=== PATIENT | female | born 1990 ===

== ENCOUNTER 2016-06-14 15:26 | Emergency (ER) | payer MEDICAID ==
[2016-06-14 15:26] VITALS: BMI 32.2
[2016-06-14 15:45] VITALS: BP 123/64; PULSE 95; RESP 16; TEMP 97.7; O2SAT 100
--- NOTE | 2016-06-14 16:10 | ED PDOC ---
HPI: Back Time Seen by Provider: 06/14/16 15:53 Chief Complaint (Nursing): Female Genitourinary Chief Complaint (Provider): Flank Pain History Per: Patient History/Exam Limitations: no limitations Onset/Duration Of Symptoms: Days (intermittently since January 2016), Worse Since (today) Current Symptoms Are (Timing): Still Present Quality Of Discomfort: Aching (constant), Other (discomfort) Severity: Moderate Associated Symptoms: Other (nausea, vomiting, feelings of generalized weakness; no fever or diarrhea) Exacerbating Factor(s): Other (urination) Additional Complaint(s): Anastasiya Dillard is a 26 year old female, with a past medical history inclusive of previous UTI's and ovarian cyst rupture, who presents to the ED on 06/14/16 for the evaluation of moderate back pain, primarily localized to her bilateral flanks (right worse than left), that she has experienced intermittently since January 2016 (x5 months) but has become acutely exacerbated over the course of the day today. Pain, described as an aching discomfort, is reportedly exacerbated upon urination, with patient further stating that she has also experienced some nausea, non-bloody vomiting, hematuria and feelings of generalized weakness. Denies fever or diarrhea. Of note, though patient denies history of kidney stones, she does report that her grandfather has a history of kidney problems. PMD: [facility] Past Medical History Reviewed: Historical Data, Nursing Documentation, Vital Signs Vital Signs: Last Vital Signs Temp 97.7 F 06/14/16 15:31 Pulse 95 H 06/14/16 15:31 Resp 16 06/14/16 15:31 BP 123/64 06/14/16 15:31 Pulse Ox 100 06/14/16 15:31 - Medical History PMH: Denies: Kidney Stones Other PMH: UTI - Surgical History Surgical History: (x 2) - Family History Family History: States: Other (kidney problems (grandfather)) - Living Arrangements Living Arrangements: With Family - Social History Current smoker - smoking cessation education provided: No Alcohol: None Drugs: Denies - Home Medications Home Medications: Ambulatory Orders Medication Instructions Recorded Ibuprofen [Wal-Profen] 400 mg PO Q6H PRN 01/12/16 Nitrofurantoin Macrocrystals 100 mg PO BID #14 tab 02/10/16 [Macrobid] Ondansetron [Zofran Odt] 4 mg PO ASDIR PRN #20 odt 02/10/16 Amoxicillin/Clavulanate [Augmentin 1 tab PO BID 10 Days 02/11/16 875 MG-125 MG] Naproxen [Naprosyn] 500 mg PO Q12H #20 tab 04/18/16 Sulfamethoxazole/Trimethoprim 1 tab PO BID #20 tab 06/14/16 [Bactrim DS 800 mg-160 mg] - Allergies Allergies/Adverse Reactions: Allergies Allergy/AdvReac Type Severity Reaction Status Date / Time No Known Allergies Allergy Verified 02/11/16 13:34 Review of Systems ROS Statement: Except As Marked, All Systems Reviewed And Found Negative Constitutional: Positive for: Weakness (generalized). Negative for: Fever Gastrointestinal: Negative for: Diarrhea Genitourinary Female: Positive for: Hematuria Musculoskeletal: Positive for: Back Pain (diffuse, primarily localized to b/l flanks, worse with urination) Physical Exam - Reviewed Nursing Documentation Reviewed: Yes Vital Signs Reviewed: Yes - Physical Exam Appears: Positive for: Non-toxic, No Acute Distress Head Exam: Positive for: ATRAUMATIC, NORMOCEPHALIC Skin: Positive for: Normal Color, Warm, Dry Cardiovascular/Chest: Positive for: Regular Rate, Rhythm. Negative for: Murmur Respiratory: Positive for: Normal Breath Sounds. Negative for: Respiratory Distress Gastrointestinal/Abdominal: Positive for: Soft, Tenderness (b/l suprapubic) Back: Positive for: Other (patient reports diffuse tenderness). Negative for: L CVA Tenderness, R CVA Tenderness, Vertebral Tenderness Neurologic/Psych: Positive for: Alert, Oriented - Laboratory Results Result Diagrams: 06/14/16 16:48 06/14/16 16:48 - ECG O2 Sat by Pulse Oximetry: 100 (RA) Pulse Ox Interpretation: Normal Medical Decision Making Medical Decision Makin:53 Initial Impression: back pain, hematuria; will r/o UTI Initial Plan: * Labs * Upreg * Urinalysis * Urine Culture * IV NS 1000ml at 1000mls/hr * Zofran 4mg IV * Reevaluation Scribe Attestation: Documented by Dionna Rhodes, acting as a scribe for Sameer Daniel MD. Provider Scribe Attestation: All medical record entries made by the Scribe were at my direction and personally dictated by me. I have reviewed the chart and agree that the record accurately reflects my personal performance of the history, physical exam, medical decision making, and the department course for this patient. I have also personally directed, reviewed, and agree with the discharge instructions and disposition. Disposition - Clinical Impression Clinical Impression: Urinary tract infection - Patient ED Disposition Is Patient to be Admitted: No Doctor Will See Patient In The: Office Counseled Patient/Family Regarding: Studies Performed, Diagnosis, Need For Followup - Disposition Referrals: Jeb Sandoval MD [Medical Doctor] - Khanh Diggs Jr., MD [Staff Provider] - Joaquín Reinoso MD [Staff Provider] - Disposition: Routine/Home Disposition Time: 17:45 Condition: GOOD Additional Instructions: Return for worsening. Follow up with your PCP in 2-3 days. Prescriptions: Sulfamethoxazole/Trimethoprim [Bactrim DS 800 mg-160 mg] 1 tab PO BID #20 tab Instructions: Urinary Tract Infection in Women (ED)
[2016-06-14] MEDS ORDERED: Sodium Chloride 0.9% 1,000 ML IV STA (16:16)
[2016-06-14 16:39] LABS: RBC URINE 2 /hpf (0-3); URINE BACTERIA OCC (<OCC); URINE BILIRUBIN NEGATIVE (NEGATIVE); URINE BLOOD NEGATIVE (NEGATIVE); URINE COLOR AMBER (YELLOW); URINE GLUCOSE (UA) NEG (Normal); URINE KETONE TRACE mg/dL (NEGATIVE); URINE LEUKOCYTE ESTERASE MOD Leu/uL (Negative); URINE PROTEIN 30 mg/dL (NEGATIVE); URINE UROBILINOGEN 0.2-1.0 mg/dL (0.2-1.0); WBC URINE 17 /hpf (0-5)
[2016-06-14 17:04] LABS: BASO % 0.3 % (0.0-2.0); EOS % 0.5 % (0.0-4.0); HEMATOCRIT 43.1 % (34.0-47.0); LYMPH # 1.6 K/uL (1.0-4.3); LYMPH % 24.1 % (20.0-40.0); MEAN CELL VOLUME 84.6 fl (81.0-99.0); MEAN CORPUSCULAR HEMOGLOBIN 28.3 pg (27.0-31.0); MEAN CORPUSCULAR HGB CONC 33.5 g/dL (33.0-37.0); MEAN PLATELET VOLUME 11.1 fl (7.2-11.7); MONO # 0.6 K/uL (0.0-0.8); MONO % 9.7 % (0.0-10.0); NEUT # 4.3 K/uL (1.8-7.0); NEUT % 65.4 % (50.0-75.0); NRBC % 0.2 % (0.0-0.0); RED CELL DISTRIBUTION WIDTH 13.4 % (11.5-14.5); WHITE BLOOD COUNT 6.5 K/uL (4.8-10.8)
[2016-06-14 17:13] LABS: BLOOD UREA NITROGEN 17 mg/dl (7-17); CALCIUM 9.1 mg/dL (8.4-10.2); CARBON DIOXIDE 26 mmol/L (22-30); CHLORIDE 103 mmol/L (98-107); GFR AFRICAN-AMERICAN > 60; GLUCOSE,RANDOM 99 mg/dL (65-105); POTASSIUM 3.6 MMOL/L (3.6-5.0); SODIUM 143 mmol/l (132-148)
== END 2016-06-14 18:31 | disposition home or self-care (01) ==
LOC: H.ER 15:26
DX: N39.0 Urinary tract infection, site not specified (principal); M54.9 Dorsalgia, unspecified; R31.9 Hematuria, unspecified

== ENCOUNTER 2016-07-12 10:49 | Emergency (ER) | payer MEDICAID ==
[2016-07-12 10:59] VITALS: BMI 30.4
--- NOTE | 2016-07-12 11:16 | ED PDOC ---
HPI: General Adult Time Seen by Provider: 07/12/16 11:15 Chief Complaint (Nursing): Flu-like Symptoms Chief Complaint (Provider): fever, sore throat History Per: Patient Additional Complaint(s): 26-year-old female with no past medical history presents to emergency department with fever and sore throat started yesterday. Patient also has body aches. She denies any coughing or congestion. Patient is tolerating liquids but cannot tolerate solids. No nausea or vomiting. Past Medical History Reviewed: Historical Data, Nursing Documentation, Vital Signs Vital Signs: Last Vital Signs Temp 102 F H 07/12/16 11:53 Pulse 128 H 07/12/16 10:57 Resp BP 114/60 07/12/16 10:57 Pulse Ox 97 07/12/16 11:37 - Medical History PMH: No Chronic Diseases - Surgical History Surgical History: (x 2) - Family History Family History: States: No Known Family Hx - Living Arrangements Living Arrangements: With Family - Social History Current smoker - smoking cessation education provided: No Alcohol: None Drugs: Denies - Home Medications Home Medications: Ambulatory Orders Medication Instructions Recorded Ibuprofen [Wal-Profen] 400 mg PO Q6H PRN 01/12/16 Nitrofurantoin Macrocrystals 100 mg PO BID #14 tab 02/10/16 [Macrobid] Ondansetron [Zofran Odt] 4 mg PO ASDIR PRN #20 odt 02/10/16 Amoxicillin/Clavulanate [Augmentin 1 tab PO BID 10 Days 02/11/16 875 MG-125 MG] Naproxen [Naprosyn] 500 mg PO Q12H #20 tab 04/18/16 Sulfamethoxazole/Trimethoprim 1 tab PO BID #20 tab 06/14/16 [Bactrim DS 800 mg-160 mg] Amoxicillin 875 mg PO BID #14 tab 07/12/16 - Allergies Allergies/Adverse Reactions: Allergies Allergy/AdvReac Type Severity Reaction Status Date / Time No Known Allergies Allergy Verified 02/11/16 13:34 Review of Systems ROS Statement: Except As Marked, All Systems Reviewed And Found Negative Constitutional: Positive for: Fever ENT: Positive for: Throat Pain, Throat Swelling Cardiovascular: Negative for: Chest Pain Respiratory: Negative for: Cough Gastrointestinal: Negative for: Nausea, Vomiting Neurological: Negative for: Headache, Dizziness Physical Exam - Reviewed Nursing Documentation Reviewed: Yes Vital Signs Reviewed: Yes - Physical Exam Appears: Positive for: Well Skin: Negative for: Rash Eye Exam: Positive for: Normal appearance, EOMI, PERRL ENT: Positive for: TM Is/Are (normal bilaterally), Pharyngeal Erythema, Tonsillar Exudate, Tonsillar Swelling, Other (No visualized peritonsillar abscess). Negative for: Nasal Congestion Cardiovascular/Chest: Positive for: Regular Rate, Rhythm Respiratory: Positive for: Normal Breath Sounds Back: Negative for: L CVA Tenderness, R CVA Tenderness Extremity: Negative for: Pedal Edema Lymphatic: Positive for: Adenopathy (bilateral anterior cervical LAD) Neurologic/Psych: Positive for: Alert, Oriented - Laboratory Results Result Diagrams: 07/12/16 11:45 07/12/16 11:45 Urine POC: Negative - ECG O2 Sat by Pulse Oximetry: 97 Pulse Ox Interpretation: Normal Medical Decision Making Medical Decision Makin26 year old with fever and sore throat Plan: test CBC CMP Rapid strep and throat culture Flu swab Blood culture VBG with lactate IVF PO motrin and tylenol Patient is aware of all diagnostic testing results, all questions answered. Case was d/w Dr. Garcia who agrees with plan to discharge patient with rx amoxicillin. Initial dose amoxicillin given in ED. Patient was instructed to continue with motrin and tylenol for fever control and to follow up with PMD in 2-3 days. Repeat vital signs are improved, temp and hear rate have normalized and BP is stable. Disposition - Clinical Impression Clinical Impression: Strep throat - Patient ED Disposition Is Patient to be Admitted: No Counseled Patient/Family Regarding: Studies Performed, Diagnosis, Need For Followup, Rx Given - Disposition Referrals: Brodie Crockett MD [Primary Care Provider] - Disposition: Routine/Home Disposition Time: 14:05 Condition: IMPROVED Additional Instructions: Rest and drink plenty of fluids. Alternate Tylenol every 4 hours and Motrin every 6 hours for fever control. Take antibiotics as directed to completion. Follow up with primary doctor in 2-3 days. Prescriptions: Amoxicillin 875 mg PO BID #14 tab Instructions: Strep Throat (ED) Results - Lab Results Lab Results: 07/12/16 07/12/16 13:20 11:45 WBC 17.6 H D RBC 5.34 H Hgb 15.0 Hct 45.7 MCV 85.4 MCH 28.1 MCHC 32.9 L RDW 13.2 Plt Count 155 MPV 12.4 H Neut % (Auto) 90.4 H Lymph % (Auto) 4.2 L [place] % (Auto) 5.2 Eos % (Auto) 0.0 Baso % (Auto) 0.2 Neut # 16.0 H Lymph # 0.7 L [place] # 0.9 H Eos # 0.0 Baso # 0.0 Neutrophils % (Manual) 84 H Band Neutrophils % 5 H Lymphocytes % (Manual) 7 L Reactive Lymphs % 1 H Monocytes % (Manual) 3 Platelet Estimate Normal Large Platelets Present Sodium 141 Potassium 4.3 Chloride 102 Carbon Dioxide 24 Anion Gap 20 BUN 13 Creatinine 0.7 Est GFR ( Amer) > 60 Est GFR (Non-Af Amer) > 60 Random Glucose 95 Lactic Acid 1.9 Calcium 9.6 Total Bilirubin 0.8 AST 28 ALT 24 Alkaline Phosphatase 67 Total Protein 8.4 H Albumin 4.3 Globulin 4.1 H Albumin/Globulin Ratio 1.0 Influenza Typ A,B (EIA) Negative for flu a/b Grp A Beta Strep Ag Positive H
[2016-07-12] MEDS ORDERED: Dexamethasone 4 mg/1 ml IV STA (11:33)
[2016-07-12] MEDS ORDERED: Sodium Chloride 0.9% 1,000 ML IV STA ×2 (11:33→12:44)
[2016-07-12] MEDS ORDERED: Dexamethasone 4 mg/1 ml ONE (11:44)
[2016-07-12 11:57] LABS: BASO % 0.2 % (0.0-2.0); HEMATOCRIT 45.7 % (34.0-47.0); LYMPH # 0.7 K/uL (1.0-4.3); LYMPH % 4.2 % (20.0-40.0); MEAN CELL VOLUME 85.4 fl (81.0-99.0); MEAN CORPUSCULAR HEMOGLOBIN 28.1 pg (27.0-31.0); MEAN CORPUSCULAR HGB CONC 32.9 g/dL (33.0-37.0); MEAN PLATELET VOLUME 12.4 fl (7.2-11.7); MONO # 0.9 K/uL (0.0-0.8); MONO % 5.2 % (0.0-10.0); NEUT % 90.4 % (50.0-75.0); PLATELET COUNT 155 K/uL (130-400); RED CELL DISTRIBUTION WIDTH 13.2 % (11.5-14.5); WHITE BLOOD COUNT 17.6 K/uL (4.8-10.8)
[2016-07-12 12:09] LABS: ALKALINE PHOSPHATASE 67 U/L (38-126); ALT/SGPT 24 U/L (9-52); AST/SGOT 28 U/L (14-36); BILIRUBIN,TOTAL 0.8 mg/dl (0.2-1.3); BLOOD UREA NITROGEN 13 mg/dl (7-17); CALCIUM 9.6 mg/dL (8.4-10.2); CARBON DIOXIDE 24 mmol/L (22-30); CHLORIDE 102 mmol/L (98-107); GFR AFRICAN-AMERICAN > 60; GLUCOSE,RANDOM 95 mg/dL (65-105); POTASSIUM 4.3 MMOL/L (3.6-5.0); SODIUM 141 mmol/l (132-148); TOTAL PROTEIN 8.4 G/DL (6.3-8.2)
[2016-07-12 12:25] LABS: NEUTROPHIL 84 % (42-75); REACTIVE LYMPHOCYTES 1 % (0-0); TOTAL CELLS COUNTED 100
[2016-07-12 12:26] LABS: LARGE PLATELETS PRESENT
[2016-07-12 14:22] VITALS: BP 132/74; PULSE 86; RESP 18; TEMP 99.7
[2016-07-12 14:28] VITALS: O2SAT 97
== END 2016-07-12 14:36 | disposition home or self-care (01) ==
LOC: H.ER 10:49 → SUPCPDRO 10:49 → H.ER 14:36
DX: J02.0 Streptococcal pharyngitis (principal)

== ENCOUNTER 2016-07-28 14:15 | Emergency (ER) | payer MEDICAID, OTHER ==
[2016-07-28] MEDS ORDERED: Sodium Chloride 0.9% 1,000 ML IV STA (15:32)
--- NOTE | 2016-07-28 15:36 | ED PDOC ---
HPI: General Adult Time Seen by Provider: 07/28/16 15:25 Chief Complaint (Nursing): Abdominal Pain Chief Complaint (Provider): abdominal pain History Per: Patient History/Exam Limitations: no limitations Additional Complaint(s): 26yo female comes to the ED complaining of abdominal pain described as cramping. Associated with loose watery diarrhea diarrhea for 3 days. Recently returned from the [place]. No fever, vomit, bloody stools. Past Medical History Reviewed: Historical Data, Nursing Documentation, Vital Signs Vital Signs: Last Vital Signs Temp 98.2 F 07/28/16 14:26 Pulse 86 07/28/16 14:26 Resp 20 07/28/16 14:26 BP 120/85 07/28/16 14:26 Pulse Ox 97 07/28/16 15:37 - Medical History PMH: No Chronic Diseases Denies: Kidney Stones - Surgical History Surgical History: (x 2) - Family History Family History: States: Unknown Family Hx - Social History Drugs: Denies - Home Medications Home Medications: Ambulatory Orders Medication Instructions Recorded Ibuprofen [Wal-Profen] 400 mg PO Q6H PRN 01/12/16 Nitrofurantoin Macrocrystals 100 mg PO BID #14 tab 02/10/16 [Macrobid] Ondansetron [Zofran Odt] 4 mg PO ASDIR PRN #20 odt 02/10/16 Amoxicillin/Clavulanate [Augmentin 1 tab PO BID 10 Days 02/11/16 875 MG-125 MG] Naproxen [Naprosyn] 500 mg PO Q12H #20 tab 04/18/16 Sulfamethoxazole/Trimethoprim 1 tab PO BID #20 tab 06/14/16 [Bactrim DS 800 mg-160 mg] Amoxicillin 875 mg PO BID #14 tab 07/12/16 - Allergies Allergies/Adverse Reactions: Allergies Allergy/AdvReac Type Severity Reaction Status Date / Time No Known Allergies Allergy Verified 02/11/16 13:34 Review of Systems ROS Statement: Except As Marked, All Systems Reviewed And Found Negative Constitutional: Negative for: Fever Gastrointestinal: Positive for: Abdominal Pain, Diarrhea. Negative for: Vomiting, Hematochezia Physical Exam - Reviewed Nursing Documentation Reviewed: Yes Vital Signs Reviewed: Yes - Physical Exam Appears: Positive for: Well, Non-toxic, No Acute Distress Head Exam: Positive for: ATRAUMATIC, NORMAL INSPECTION, NORMOCEPHALIC Skin: Positive for: Warm, Dry Eye Exam: Positive for: EOMI, PERRL ENT: Positive for: Other (moist mucous membrane) Cardiovascular/Chest: Positive for: Regular Rate, Rhythm Respiratory: Positive for: Normal Breath Sounds. Negative for: Rales, Rhonchi, Wheezing Gastrointestinal/Abdominal: Positive for: Soft, Tenderness (mild bilateral lower quadrant tenderness). Negative for: Guarding Extremity: Positive for: Normal ROM - Laboratory Results Result Diagrams: 07/28/16 15:41 07/28/16 15:41 - ECG O2 Sat by Pulse Oximetry: 97 (RA) Pulse Ox Interpretation: Normal Medical Decision Making Medical Decision Makin CT, labs, Imodium, IV fluids ordered. Disposition - Clinical Impression Clinical Impression: Abdominal pain - Patient ED Disposition Is Patient to be Admitted: Transfer of Care - Disposition Disposition: Transfer of Care Disposition Time: 17:00 Condition: FAIR Patient Signed Over To: Kiki Pedro Additional Comments - Additional Comments Additional Comments: Scribe Attestation: Documented by Donovan Rondon acting as a scribe for Luis Dawson MD. Provider Scribe Attestation: All medical record entries made by the Scribe were at my direction and personally dictated by me. I have reviewed the chart and agree that the record accurately reflects my personal performance of the history, physical exam, medical decision making, and the department course for this patient. I have also personally directed, reviewed, and agree with the discharge instructions and disposition.
--- NOTE | 2016-07-28 15:44 | ED PDOC ---
HPI: Abdomen Time Seen by Provider: 07/28/16 15:25 Chief Complaint (Nursing): Abdominal Pain History Per: Patient Past Medical History Vital Signs: Last Vital Signs Temp 98.2 F 07/28/16 14:26 Pulse 86 07/28/16 14:26 Resp 20 07/28/16 14:26 BP 120/85 07/28/16 14:26 Pulse Ox 97 07/28/16 14:26 - Medical History PMH: Denies: Kidney Stones - Surgical History Surgical History: (x 2) - Family History Family History: States: Unknown Family Hx - Home Medications Home Medications: Ambulatory Orders Medication Instructions Recorded Ibuprofen [Wal-Profen] 400 mg PO Q6H PRN 01/12/16 Nitrofurantoin Macrocrystals 100 mg PO BID #14 tab 02/10/16 [Macrobid] Ondansetron [Zofran Odt] 4 mg PO ASDIR PRN #20 odt 02/10/16 Amoxicillin/Clavulanate [Augmentin 1 tab PO BID 10 Days 02/11/16 875 MG-125 MG] Naproxen [Naprosyn] 500 mg PO Q12H #20 tab 04/18/16 Sulfamethoxazole/Trimethoprim 1 tab PO BID #20 tab 06/14/16 [Bactrim DS 800 mg-160 mg] Amoxicillin 875 mg PO BID #14 tab 07/12/16 - Allergies Allergies/Adverse Reactions: Allergies Allergy/AdvReac Type Severity Reaction Status Date / Time No Known Allergies Allergy Verified 02/11/16 13:34 - ECG O2 Sat by Pulse Oximetry: 97
[2016-07-28 16:03] LABS: BASO % 0.8 % (0.0-2.0); EOS % 0.3 % (0.0-4.0); HEMATOCRIT 45.8 % (34.0-47.0); LYMPH # 1.6 K/uL (1.0-4.3); MEAN CELL VOLUME 85.6 fl (81.0-99.0); MEAN CORPUSCULAR HEMOGLOBIN 28.1 pg (27.0-31.0); MEAN CORPUSCULAR HGB CONC 32.8 g/dL (33.0-37.0); MEAN PLATELET VOLUME 10.5 fl (7.2-11.7); MONO # 0.6 K/uL (0.0-0.8); MONO % 11.3 % (0.0-10.0); NEUT # 2.9 K/uL (1.8-7.0); NEUT % 55.6 % (50.0-75.0); NRBC % 0.2 % (0.0-0.0); RED CELL DISTRIBUTION WIDTH 13.9 % (11.5-14.5); WHITE BLOOD COUNT 5.1 K/uL (4.8-10.8)
[2016-07-28 16:14] LABS: ALB/GLOB RATIO 1.2 (1.0-2.1); ALKALINE PHOSPHATASE 53 U/L (38-126); ALT/SGPT 57 U/L (9-52); AST/SGOT 50 U/L (14-36); BILIRUBIN,TOTAL 0.4 mg/dl (0.2-1.3); BLOOD UREA NITROGEN 14 mg/dl (7-17); CALCIUM 9.3 mg/dL (8.4-10.2); CARBON DIOXIDE 24 mmol/L (22-30); CHLORIDE 104 mmol/L (98-107); GFR AFRICAN-AMERICAN > 60; GLUCOSE,RANDOM 86 mg/dL (65-105); POTASSIUM 3.9 MMOL/L (3.6-5.0); SODIUM 139 mmol/l (132-148)
[2016-07-28] MEDS ORDERED: Sodium Chloride 0.9% 50 ML IV ONE (17:09)
[2016-07-28] MEDS ORDERED: Iohexol 300 100 ML IJ ONE (17:09)
[2016-07-28 17:31] VITALS: BMI 31.3
--- NOTE | 2016-07-28 18:12 | CT ---
PROCEDURE: CT Abdomen and Pelvis with contrast HISTORY: abd pain, diarrhea COMPARISON: CT of the abdomen and pelvis without oral or IV contrast performed 02/11/16 TECHNIQUE: Contrast dose: 90 mL Omnipaque 300 Radiation dose: Total exam DLP = 824.26 mGy-cm. This CT exam was performed using one or more of the following dose reduction techniques: Automated exposure control, adjustment of the mA and/or kV according to patient size, and/or use of iterative reconstruction technique. FINDINGS: LOWER THORAX: Minimal basilar atelectasis. No visible pleural effusion or pneumothorax. Small hiatal hernia. LIVER: Hypoattenuation of the liver compatible with hepatic steatosis. GALLBLADDER AND BILE DUCTS: Unremarkable. PANCREAS: Unremarkable. SPLEEN: Unremarkable. ADRENALS: Unremarkable. KIDNEYS AND URETERS: The kidneys enhance symmetrically. No hydronephrosis or obstructing calculus evident. VASCULATURE: No aortic aneurysm. BOWEL: Stomach is nondistended. Lack of oral contrast limits evaluation for bowel pathology. Bowel loops appear within normal limits of caliber without evidence of obstruction. APPENDIX: The appendix appears within normal limits of caliber. No secondary signs of acute appendicitis. PERITONEUM: Small pelvic free fluid. No definite free air. LYMPH NODES: Prominent sub cm mesenteric adenopathy, nonspecific. BLADDER: Unremarkable. REPRODUCTIVE: The uterus is present. Probable 16 mm right ovarian cyst. Question prominence the region of the right adnexa; cysts or possibly hydrosalpinx cannot be excluded. Recommend pelvic ultrasound for further evaluation. BONES: No acute osseous abnormality is detected. OTHER FINDINGS: None. IMPRESSION: Hepatic steatosis. Probable 16 mm right ovarian cyst. Question prominence the region of the right adnexa; cysts or possibly hydrosalpinx cannot be excluded. Recommend pelvic ultrasound for further evaluation. Small pelvic free fluid.
--- NOTE | 2016-07-28 18:37 | ED PDOC ---
- Laboratory Results Result Diagrams: 07/28/16 15:41 07/28/16 15:41 - ECG O2 Sat by Pulse Oximetry: 97 (RA) - Progress ED Course And Treament: 5p Rec'd endorsement from Dr Dawson. Pt had diarrhea [place] [facility] [place] Pending CT for abd pain. Accession No. : [id number] Patient Name / ID : ILSA BRICE / [id number] Exam Date : 07/28/2016 17:25:27 ( Approved ) Study Comment : Sex / Age : F / 26Y Creator : Silke North MD Dictator : Silke North MD Plaster Applicator : Association Executive : Silke North MD Approver2 : Report Date : 07/28/2016 18:10:44 My Comment : PROCEDURE: CT Abdomen and Pelvis with contrast HISTORY: abd pain, diarrhea COMPARISON: CT of the abdomen and pelvis without oral or IV contrast performed 02/11/16 TECHNIQUE: Contrast dose: 90 mL Omnipaque 300 Radiation dose: Total exam DLP = 824.26 mGy-cm. This CT exam was performed using one or more of the following dose reduction techniques: Automated exposure control, adjustment of the mA and/or kV according to patient size, and/or use of iterative reconstruction technique. FINDINGS: LOWER THORAX: Minimal basilar atelectasis. No visible pleural effusion or pneumothorax. Small hiatal hernia. LIVER: Hypoattenuation of the liver compatible with hepatic steatosis. GALLBLADDER AND BILE DUCTS: Unremarkable. PANCREAS: Unremarkable. SPLEEN: Unremarkable. ADRENALS: Unremarkable. KIDNEYS AND URETERS: The kidneys enhance symmetrically. No hydronephrosis or obstructing calculus evident. VASCULATURE: No aortic aneurysm. BOWEL: Stomach is nondistended. Lack of oral contrast limits evaluation for bowel pathology. Bowel loops appear within normal limits of caliber without evidence of obstruction. APPENDIX: The appendix appears within normal limits of caliber. No secondary signs of acute appendicitis. PERITONEUM: Small pelvic free fluid. No definite free air. LYMPH NODES: Prominent sub cm mesenteric adenopathy, nonspecific. BLADDER: Unremarkable. REPRODUCTIVE: The uterus is present. Probable 16 mm right ovarian cyst. Question prominence the region of the right adnexa; cysts or possibly hydrosalpinx cannot be excluded. Recommend pelvic ultrasound for further evaluation. BONES: No acute osseous abnormality is detected. OTHER FINDINGS: None. IMPRESSION: Hepatic steatosis. Probable 16 mm right ovarian cyst. Question prominence the region of the right adnexa; cysts or possibly hydrosalpinx cannot be excluded. Recommend pelvic ultrasound for further evaluation. Small pelvic free fluid. 6p On reeval pt feeling better, eating well. DW pt findings and plan of care. Eager to go home. Advised follow up. Disposition - Clinical Impression Clinical Impression: Abdominal pain, Diarrhea, Ovarian cyst - POA Present On Arrival: None - Disposition Referrals: Angel Faustin Jr., MD [Family Provider] - 07/30/16 (FOLLOW UP WITH YOUR DOCTOR IN 1-2 DAYS FOR REEVALUATION) Disposition: Routine/Home Disposition Time: 18:36 Condition: GOOD Prescriptions: Atropine/Diphenoxylate [Lonox 0.025 MG-2.5 MG] 2 tab PO Q6H PRN #30 tab PRN Reason: Diarrhea Ciprofloxacin HCl [Cipro] 500 mg PO BID #20 tab Saccharomyces Boulardi [Florastor] 500 mg PO BID #28 cap Instructions: Traveler's Diarrhea (ED), Nutrition Tips for Relief of Diarrhea ( ED), Ovarian Cyst (ED)
[2016-07-28 19:07] VITALS: BP 126/69; PULSE 79; RESP 18; TEMP 98.7; O2SAT 99
== END 2016-07-28 19:14 | disposition home or self-care (01) ==
LOC: H.ER 14:15
DX: R10.9 Unspecified abdominal pain (principal); R19.7 Diarrhea, unspecified; N83.201 Unspecified ovarian cyst, right side; K76.0 Fatty (change of) liver, not elsewhere classified

== ENCOUNTER 2016-09-22 16:57 | Emergency (ER) | payer MEDICAID ==
[2016-09-22 16:57] VITALS: BMI 31.3
[2016-09-22] MEDS ORDERED: Sodium Chloride 0.9% 1,000 ML IV STA (17:44)
[2016-09-22] MEDS ORDERED: Dexamethasone 10 MG in Sodium Chloride 0.9% 50 ML IV ONE (17:44)
--- NOTE | 2016-09-22 17:56 | ED PDOC ---
HPI: General Adult Time Seen by Provider: 09/22/16 17:20 Chief Complaint (Nursing): ENT Problem Chief Complaint (Provider): ENT problem History Per: Patient History/Exam Limitations: no limitations Onset/Duration Of Symptoms: Days (4x) Current Symptoms Are (Timing): Still Present Severity: Moderate Additional Complaint(s): 26 year old female with a pertinent medical history of urinary tract infections , strep throat, and chronic back pain presents to the ED with complaints of a fever that started 4x days ago. She reports also having a sore throat, decreased urinary output, dysuria, feeling lightheaded, and back pain. She reports taking motrin and tylenol with no relief. She denies having nausea, vomiting, diarrhea, and chest pain. PMD: Citlalli Argueta MD Past Medical History Reviewed: Historical Data, Nursing Documentation, Vital Signs Vital Signs: Last Vital Signs Temp 98 F 09/22/16 17:00 Pulse 95 H 09/22/16 17:00 Resp 18 09/22/16 17:00 BP 133/70 09/22/16 17:00 Pulse Ox 98 09/22/16 21:17 - Medical History PMH: Back Problems (back pain) Denies: Kidney Stones - Surgical History Surgical History: (x 2) - Family History Family History: States: Unknown Family Hx - Social History Alcohol: Social Drugs: Denies - Home Medications Home Medications: Ambulatory Orders Medication Instructions Recorded Ibuprofen [Wal-Profen] 400 mg PO Q6H PRN 01/12/16 Nitrofurantoin Macrocrystals 100 mg PO BID #14 tab 02/10/16 [Macrobid] Ondansetron [Zofran Odt] 4 mg PO ASDIR PRN #20 odt 02/10/16 Amoxicillin/Clavulanate [Augmentin 1 tab PO BID 10 Days 02/11/16 875 MG-125 MG] Naproxen [Naprosyn] 500 mg PO Q12H #20 tab 04/18/16 Sulfamethoxazole/Trimethoprim 1 tab PO BID #20 tab 06/14/16 [Bactrim DS 800 mg-160 mg] Amoxicillin 875 mg PO BID #14 tab 07/12/16 Atropine/Diphenoxylate [Lonox 2 tab PO Q6H PRN #30 tab 07/28/16 0.025 MG-2.5 MG] Ciprofloxacin HCl [Cipro] 500 mg PO BID #20 tab 07/28/16 Saccharomyces Boulardi [Florastor] 500 mg PO BID #28 cap 07/28/16 Cephalexin [Keflex] 500 mg PO QID #5 capsule 09/22/16 Ibuprofen [Motrin] 600 mg PO Q8 PRN #21 tab 09/22/16 - Allergies Allergies/Adverse Reactions: Allergies Allergy/AdvReac Type Severity Reaction Status Date / Time No Known Allergies Allergy Verified 02/11/16 13:34 Review of Systems ROS Statement: Except As Marked, All Systems Reviewed And Found Negative Constitutional: Positive for: Fever, Chills ENT: Positive for: Throat Pain Gastrointestinal: Negative for: Nausea, Vomiting, Abdominal Pain, Diarrhea Genitourinary Female: Positive for: Dysuria (with decreased urinary output) Musculoskeletal: Positive for: Back Pain Physical Exam - Reviewed Nursing Documentation Reviewed: Yes Vital Signs Reviewed: Yes - Physical Exam Appears: Positive for: Well, Non-toxic, No Acute Distress Head Exam: Positive for: ATRAUMATIC, NORMOCEPHALIC Skin: Positive for: Normal Color, Warm, Dry Eye Exam: Positive for: Normal appearance ENT: Positive for: Tonsillar Exudate (with bilateral tonsillar erythema) Cardiovascular/Chest: Positive for: Regular Rate, Rhythm Respiratory: Positive for: Normal Breath Sounds. Negative for: Respiratory Distress Gastrointestinal/Abdominal: Positive for: Normal Exam, Soft. Negative for: Tenderness Back: Positive for: R CVA Tenderness Extremity: Positive for: Normal ROM Neurologic/Psych: Positive for: Alert, Oriented (3x) - Laboratory Results Result Diagrams: 09/22/16 18:20 09/22/16 18:20 - ECG O2 Sat by Pulse Oximetry: 98 (RA) Pulse Ox Interpretation: Normal - Progress ED Course And Treament: renal us: IMPRESSION: Normal renal ultrasound. No hydronephrosis. Thank you for allowing us to participate in the care of your patient. Dictated and Authenticated by: Ulysses Spence MD Medical Decision Making Medical Decision Makin:20 Initial impression: 26 year old female with a possible urinary tract infection and strep throat. Initial plan: * US renal * BMP * urine * udip * CBC * urine culture * rapid strep group A antigen * urinalysis * decadron inj 10mg sodium chloride .9% 50ml IV * IV NS 1,000ml IV 500 mls/hr * reevaluation Scribe Attestation: Documented by Liv Russ, acting as a scribe for Tanja Dey PA-C. Provider Scribe Attestation: All medical record entries made by the Scribe were at my direction and personally dictated by me. I have reviewed the chart and agree that the record accurately reflects my personal performance of the history, physical exam, medical decision making, and the department course for this patient. I have also personally directed, reviewed, and agree with the discharge instructions and disposition. Disposition - Clinical Impression Clinical Impression: Pharyngitis, UTI (urinary tract infection) - Patient ED Disposition Is Patient to be Admitted: No - Disposition Referrals: [facility] [Outside] Disposition: Routine/Home Disposition Time: 22:05 Condition: FAIR Prescriptions: Cephalexin [Keflex] 500 mg PO QID #5 capsule Ibuprofen [Motrin] 600 mg PO Q8 PRN #21 tab PRN Reason: Pain, Moderate (4-7) Instructions: Urinary Tract Infection in Women (DC), Pharyngitis (ED) Forms: [facility] ED School/Work Excuse
[2016-09-22 18:33] LABS: SQUAMOUS EPITHIAL 21 /hpf (0-5); URINE BACTERIA RARE (<OCC); URINE BILIRUBIN NEGATIVE (NEGATIVE); URINE BLOOD NEGATIVE (NEGATIVE); URINE CLARITY SLIGHTY-CLOUDY (Clear); URINE COLOR YELLOW (YELLOW); URINE GLUCOSE (UA) NEG (Normal); URINE LEUKOCYTE ESTERASE SMALL Leu/uL (Negative); URINE NITRATE NEGATIVE (NEGATIVE); URINE PROTEIN NEGATIVE (NEGATIVE); URINE UROBILINOGEN 0.2-1.0 mg/dL (0.2-1.0)
[2016-09-22 18:34] LABS: BASO % 0.3 % (0.0-2.0); EOS % 0.1 % (0.0-4.0); HEMOGLOBIN 13.4 g/dL (12.0-16.0); LYMPH # 1.6 K/uL (1.0-4.3); LYMPH % 19.3 % (20.0-40.0); MEAN CELL VOLUME 85.6 fl (81.0-99.0); MEAN CORPUSCULAR HEMOGLOBIN 27.6 pg (27.0-31.0); MEAN CORPUSCULAR HGB CONC 32.2 g/dL (33.0-37.0); MONO % 12.7 % (0.0-10.0); NEUT # 5.5 K/uL (1.8-7.0); NEUT % 67.6 % (50.0-75.0); RBC 4.84 Mil/uL (3.80-5.20); RED CELL DISTRIBUTION WIDTH 14.1 % (11.5-14.5); WHITE BLOOD COUNT 8.1 K/uL (4.8-10.8)
[2016-09-22 18:40] LABS: BLOOD UREA NITROGEN 10 mg/dl (7-17); CALCIUM 9.1 mg/dL (8.4-10.2); GFR AFRICAN-AMERICAN > 60; GFR NON-AFRICAN AMERICAN > 60
[2016-09-22] MEDS ORDERED: cefTRIAXone (Rocephin) 1 gm Inj IVPB ONE ×2 (20:20→20:54)
[2016-09-22] MEDS ORDERED: cefTRIAXone (Rocephin) 1 gm Inj ONE (20:35)
[2016-09-22 22:54] VITALS: BP 129/76; PULSE 84; RESP 16; TEMP 98.3; O2SAT 100
--- NOTE | 2016-09-23 08:24 | US ---
PROCEDURE: Ultrasound of the Kidneys HISTORY: HYDRONEPHROSIS RIGHT SIDE COMPARISON: None available. TECHNIQUE: Sonogram of the kidneys. FINDINGS: RIGHT KIDNEY: Measures: 11.4 x 6.8 x 4 cm. Normal in size, contour and echogenicity. No stone, solid mass lesion or hydronephrosis visualized. LEFT KIDNEY: Measures: 11.1 x 6.2 x 5.8 cm. Normal in size, contour and echogenicity. No stone, solid mass lesion or hydronephrosis visualized. OTHER FINDINGS: None. IMPRESSION: Unremarkable renal sonogram. Please note that this report is in general agreement with the preliminary report provided by [facility].
== END 2016-09-22 22:31 | disposition home or self-care (01) ==
LOC: H.ER 16:57
DX: N39.0 Urinary tract infection, site not specified (principal); J02.9 Acute pharyngitis, unspecified

== ENCOUNTER 2017-04-20 18:04 | Emergency (ER) | payer MEDICAID ==
[2017-04-20 18:04] VITALS: BMI 31.3
--- NOTE | 2017-04-20 19:04 | ED PDOC ---
HPI: CCC, URI, Sore Throat Time Seen by Provider: 04/20/17 18:34 Chief Complaint (Nursing): Flu-like Symptoms Chief Complaint (Provider): Flu like symptoms History Per: Patient History/Exam Limitations: no limitations Have you had recent travel within the past 21 days to any of the following countries: [place], [place], [place] or [place]?: No Onset/Duration Of Symptoms: Days Current Symptoms Are (Timing): Still Present Additional History Per: Patient Additional Complaint(s): 26yo female, presents to ED with complaints of abdominal discomfort, nausea and diarrhea for the past couple days. She also complains of headache, dizziness and weakness. She reports taking Motrin last night with minimal relief. She denies any fever, chills. She also states she has not received her flu vaccination this year. She has no other medical complaints. LMP: March 24 Past Medical History Reviewed: Historical Data, Nursing Documentation, Vital Signs Vital Signs: Last Vital Signs Temp 99.9 F H 04/20/17 18:15 Pulse 116 H 04/20/17 18:15 Resp 18 04/20/17 18:15 BP 159/81 H 04/20/17 18:15 Pulse Ox 99 04/20/17 20:39 - Medical History PMH: Back Problems (back pain) Denies: Kidney Stones - Surgical History Surgical History: (x 2) - Family History Family History: States: Unknown Family Hx - Home Medications Home Medications: Ambulatory Orders Medication Instructions Recorded Ibuprofen [Wal-Profen] 400 mg PO Q6H PRN 01/12/16 Nitrofurantoin Macrocrystals 100 mg PO BID #14 tab 02/10/16 [Macrobid] Ondansetron [Zofran Odt] 4 mg PO ASDIR PRN #20 odt 02/10/16 Amoxicillin/Clavulanate [Augmentin 1 tab PO BID 10 Days tab 02/11/16 875 MG-125 MG] Naproxen [Naprosyn] 500 mg PO Q12H #20 tab 04/18/16 Sulfamethoxazole/Trimethoprim 1 tab PO BID #20 tab 06/14/16 [Bactrim DS 800 mg-160 mg] Amoxicillin 875 mg PO BID #14 tab 07/12/16 Atropine/Diphenoxylate [Lonox 2 tab PO Q6H PRN #30 tab 07/28/16 0.025 MG-2.5 MG] Ciprofloxacin HCl [Cipro] 500 mg PO BID #20 tab 07/28/16 Saccharomyces Boulardi [Florastor] 500 mg PO BID #28 cap 07/28/16 Cephalexin [Keflex] 500 mg PO QID #5 capsule 09/22/16 Ibuprofen [Motrin] 600 mg PO Q8 PRN #21 tab 09/22/16 - Allergies Allergies/Adverse Reactions: Allergies Allergy/AdvReac Type Severity Reaction Status Date / Time No Known Allergies Allergy Verified 02/11/16 13:34 Review of Systems ROS Statement: Except As Marked, All Systems Reviewed And Found Negative Constitutional: Positive for: Malaise. Negative for: Fever, Chills Gastrointestinal: Positive for: Nausea, Vomiting, Abdominal Pain Neurological: Positive for: Headache, Dizziness Physical Exam - Reviewed Nursing Documentation Reviewed: Yes Vital Signs Reviewed: Yes - Physical Exam Appears: Positive for: Non-toxic, No Acute Distress Head Exam: Positive for: ATRAUMATIC, NORMAL INSPECTION, NORMOCEPHALIC Skin: Positive for: Normal Color Eye Exam: Positive for: Normal appearance Neck: Positive for: Supple Cardiovascular/Chest: Positive for: Regular Rate, Rhythm Respiratory: Positive for: Normal Breath Sounds. Negative for: Respiratory Distress Gastrointestinal/Abdominal: Positive for: Normal Exam, Soft. Negative for: Tenderness Neurologic/Psych: Positive for: Alert, Oriented - Laboratory Results Result Diagrams: 04/20/17 21:29 04/20/17 21:29 - ECG O2 Sat by Pulse Oximetry: 99 (RA) Pulse Ox Interpretation: Normal Medical Decision Making Medical Decision Making: Impression: Flu like symptoms Plan: -- Rapid flu Time: 1930 Serology reports reviewed, patient negative for influenza. Scribe Attestation: Documented by Anne Plaza acting as a scribe for HAYDEN Mann Provider Attestation: All medical record entries made by the Scribe were at my direction and personally dictated by me. I have reviewed the chart and agree that the record accurately reflects my personal performance of the history, physical exam, medical decision making, and the department course for this patient. I have also personally directed, reviewed, and agree with the discharge instructions and disposition. Disposition - Clinical Impression Clinical Impression: Viral illness - Patient ED Disposition Is Patient to be Admitted: No Counseled Patient/Family Regarding: Diagnosis, Need For Followup - Disposition Disposition: Routine/Home Disposition Time: 23:16 Condition: STABLE Instructions: Viral Syndrome (ED) Forms: [employer] (Libyan)
[2017-04-20] MEDS: Sodium Chloride 0.9% 1,000 ML IV STA (21:20)
[2017-04-20 21:35] LABS: BASO % 0.2 % (0.0-2.0); EOS % 0.1 % (0.0-4.0); HEMOGLOBIN 15.1 g/dL (12.0-16.0); LYMPH # 0.7 K/uL (1.0-4.3); LYMPH % 6.6 % (20.0-40.0); MEAN CELL VOLUME 85.3 fl (81.0-99.0); MEAN CORPUSCULAR HEMOGLOBIN 27.8 pg (27.0-31.0); MEAN CORPUSCULAR HGB CONC 32.6 g/dL (33.0-37.0); MEAN PLATELET VOLUME 11.2 fl (7.2-11.7); MONO # 0.7 K/uL (0.0-0.8); MONO % 6.6 % (0.0-10.0); NEUT # 9.6 K/uL (1.8-7.0); NEUT % 86.5 % (50.0-75.0); NRBC % 0.3 % (0.0-0.0); PLATELET COUNT 161 K/uL (130-400); RBC 5.45 Mil/uL (3.80-5.20); RED CELL DISTRIBUTION WIDTH 13.3 % (11.5-14.5); WHITE BLOOD COUNT 11.1 K/uL (4.8-10.8)
[2017-04-20 21:47] LABS: ALB/GLOB RATIO 1.2 (1.0-2.1); ALBUMIN 4.3 g/dL (3.5-5.0); ALT/SGPT 24 U/L (9-52); AST/SGOT 27 U/L (14-36); BLOOD UREA NITROGEN 15 mg/dl (7-17); CALCIUM 9.5 mg/dL (8.4-10.2); GFR AFRICAN-AMERICAN > 60; GFR NON-AFRICAN AMERICAN > 60
[2017-04-20 22:23] LABS: LYMPHOCYTE 5 % (20-50); MONOCYTE 5 % (0-10); NEUTROPHIL 90 % (42-75); PLATELET ESTIMATE NORMAL (NORMAL); TOTAL CELLS COUNTED 100
[2017-04-20 23:21] VITALS: BP 106/63; PULSE 99; RESP 17; TEMP 98.9; O2SAT 98
== END 2017-04-20 23:21 | disposition home or self-care (01) ==
LOC: H.ER 18:04
DX: B34.9 Viral infection, unspecified (principal); R10.9 Unspecified abdominal pain
CPT/HCPCS: 80053; 85025; 87804; 99283; J7040

== ENCOUNTER 2017-10-20 01:11 | Emergency (ER) | payer MEDICAID ==
[2017-10-20 01:12] VITALS: BMI 31.3
--- NOTE | 2017-10-20 02:19 | ED PDOC ---
HPI: CCC, URI, Sore Throat Time Seen by Provider: 10/20/17 01:49 Chief Complaint (Nursing): ENT Problem Chief Complaint (Provider): sore throat, cough History Per: Patient History/Exam Limitations: no limitations Onset/Duration Of Symptoms: Days (3) Current Symptoms Are (Timing): Still Present Location Of Pain: Throat Associated Symptoms: Chills, Sore Throat, Cough Additional Complaint(s): 27 y/o female presents for evaluation of sore throat, nonproductive x 3 days. APatient states around 21:00 last night she was using bleach and ammonia to clean and breathing in the chemicals made her cough worse, with associated shortness of breath, nasal congestion. Patient states after stepping outside all symptoms but cough and sore throat resolved. Denies fever, chest pain, shortness of breath, palpitations, abdominal pain, changes in bowel movements, urinary symptoms. Past Medical History Reviewed: Historical Data, Nursing Documentation, Vital Signs Vital Signs: Last Vital Signs Temp 97.9 F 10/20/17 01:22 Pulse 64 10/20/17 01:22 Resp 14 10/20/17 01:22 BP 120/71 10/20/17 01:22 Pulse Ox 99 10/20/17 02:26 - Medical History PMH: Back Problems (back pain) Denies: Kidney Stones - Surgical History Surgical History: (x 2) - Family History Family History: States: Unknown Family Hx - Home Medications Home Medications: Ambulatory Orders Medication Instructions Recorded Ibuprofen [Wal-Profen] 400 mg PO Q6H PRN 01/12/16 Nitrofurantoin Macrocrystals 100 mg PO BID #14 tab 02/10/16 [Macrobid] Ondansetron [Zofran Odt] 4 mg PO ASDIR PRN #20 odt 02/10/16 Amoxicillin/Clavulanate [Augmentin 1 tab PO BID 10 Days tab 02/11/16 875 MG-125 MG] Naproxen [Naprosyn] 500 mg PO Q12H #20 tab 04/18/16 Sulfamethoxazole/Trimethoprim 1 tab PO BID #20 tab 06/14/16 [Bactrim DS 800 mg-160 mg] Amoxicillin 875 mg PO BID #14 tab 07/12/16 Atropine/Diphenoxylate [Lonox 2 tab PO Q6H PRN #30 tab 07/28/16 0.025 MG-2.5 MG] Ciprofloxacin HCl [Cipro] 500 mg PO BID #20 tab 07/28/16 Saccharomyces Boulardi [Florastor] 500 mg PO BID #28 cap 07/28/16 Cephalexin [Keflex] 500 mg PO QID #5 capsule 09/22/16 Ibuprofen [Motrin] 600 mg PO Q8 PRN #21 tab 09/22/16 Oseltamivir [Tamiflu] 75 mg PO BID #10 cap 04/20/17 Albuterol HFA [Ventolin HFA 90 1 puff IH Q4 PRN #1 inh 10/20/17 mcg/actuation (8 g)] Fluticasone Nasal [Flonase] 1 actuation NS BID #1 bottle 10/20/17 Ibuprofen [Motrin Tab] 1 tab PO Q6 PRN #20 tab 10/20/17 Promethazine DM [Phenergan DM 5 ml PO Q6 PRN #1 bottle 10/20/17 Syrup] - Allergies Allergies/Adverse Reactions: Allergies Allergy/AdvReac Type Severity Reaction Status Date / Time No Known Allergies Allergy Verified 10/20/17 01:22 Review of Systems ROS Statement: Except As Marked, All Systems Reviewed And Found Negative ENT: Positive for: Throat Pain Respiratory: Positive for: Cough Physical Exam - Reviewed Nursing Documentation Reviewed: Yes Vital Signs Reviewed: Yes - Physical Exam Appears: Positive for: Well, Non-toxic, No Acute Distress Head Exam: Positive for: ATRAUMATIC, NORMAL INSPECTION, NORMOCEPHALIC Eye Exam: Positive for: Normal appearance ENT: Positive for: Pharyngeal Erythema. Negative for: Tonsillar Swelling Neck: Positive for: Normal Cardiovascular/Chest: Positive for: Regular Rate, Rhythm Respiratory: Positive for: Normal Breath Sounds Gastrointestinal/Abdominal: Positive for: Normal Exam Back: Positive for: Normal Inspection Extremity: Positive for: Normal ROM Neurologic/Psych: Positive for: Alert, Oriented (x3) - ECG O2 Sat by Pulse Oximetry: 99 - Radiology X-Ray: Viewed By In X-Ray Interpretation: No Acute Disease - Progress ED Course And Treament: rapid strep, chest xray, duoneb, ibuprofen Patient educated on findings, discharged with rx flonase, ibuprofen, albuterol HFA, promethazine DM Advised follow up PMD 2-3 days rest. fluids Return precautions given Disposition - Clinical Impression Clinical Impression: URI (upper respiratory infection), Exposure to chemical irritant - Patient ED Disposition Is Patient to be Admitted: No Counseled Patient/Family Regarding: Studies Performed, Diagnosis, Need For Followup, Rx Given - Disposition Referrals: Valerie Haider MD [Primary Care Provider] - Disposition: Routine/Home Disposition Time: 03:29 Condition: IMPROVED Prescriptions: Albuterol HFA [Ventolin HFA 90 mcg/actuation (8 g)] 1 puff IH Q4 PRN #1 inh PRN Reason: Wheezing Fluticasone Nasal [Flonase] 1 actuation NS BID #1 bottle Ibuprofen [Motrin Tab] 1 tab PO Q6 PRN #20 tab PRN Reason: Pain, Moderate (4-7) Promethazine DM [Phenergan DM Syrup] 5 ml PO Q6 PRN #1 bottle PRN Reason: Cough Instructions: Viral Upper Respiratory Infection, Adult (DC)
[2017-10-20] MEDS: Albuterol-Ipratrop 3 mg / 0.5 (3 ml) UD IH STA (02:48)
[2017-10-20 04:03] VITALS: BP 121/73; PULSE 72; RESP 16; TEMP 98; O2SAT 98
== END 2017-10-20 04:02 | disposition home or self-care (01) ==
LOC: H.ER 01:11
DX: J06.9 Acute upper respiratory infection, unspecified (principal); Z77.098 Contact with and (suspected) exposure to other hazardous, chiefly nonmedicinal, chemicals; R05 Cough

== ENCOUNTER 2017-11-13 16:40 | Emergency (ER) | payer MEDICAID ==
[2017-11-13 16:40] VITALS: BMI 31.3
[2017-11-13 17:01] VITALS: BP 130/83; PULSE 75; RESP 16; TEMP 98.7; O2SAT 99
--- NOTE | 2017-11-13 18:45 | ED PDOC ---
HPI: CCC, URI, Sore Throat Time Seen by Provider: 11/13/17 17:26 Chief Complaint (Nursing): Cough, Cold, Congestion Chief Complaint (Provider): runny nose, ear pain, congestion History Per: Patient History/Exam Limitations: no limitations Have you had recent travel within the past 21 days to any of the following countries: [place], [place], [place] or [place]?: No Onset/Duration Of Symptoms: Days Current Symptoms Are (Timing): Still Present Additional Complaint(s): 27 yo female with no medical problems presents for evaluation of ear pain, runny nose and congestion x 3 days. Pt was seen at urgent care yesterday and given azithromycin. Pt states she took 2 doses already. Pt states it has been upsetting her stomach. Past Medical History Vital Signs: Last Vital Signs Temp 98.7 F 11/13/17 16:59 Pulse 75 11/13/17 16:59 Resp 16 11/13/17 16:59 BP 130/83 11/13/17 16:59 Pulse Ox 99 11/13/17 16:59 - Medical History PMH: Back Problems (back pain) Denies: Kidney Stones - Surgical History Surgical History: (x 2) - Family History Family History: States: Unknown Family Hx - Home Medications Home Medications: Ambulatory Orders Medication Instructions Recorded Ibuprofen [Wal-Profen] 400 mg PO Q6H PRN 01/12/16 Nitrofurantoin Macrocrystals 100 mg PO BID #14 tab 02/10/16 [Macrobid] Ondansetron [Zofran Odt] 4 mg PO ASDIR PRN #20 odt 02/10/16 Amoxicillin/Clavulanate [Augmentin 1 tab PO BID 10 Days tab 02/11/16 875 MG-125 MG] Naproxen [Naprosyn] 500 mg PO Q12H #20 tab 04/18/16 Sulfamethoxazole/Trimethoprim 1 tab PO BID #20 tab 06/14/16 [Bactrim DS 800 mg-160 mg] Amoxicillin 875 mg PO BID #14 tab 07/12/16 Atropine/Diphenoxylate [Lonox 2 tab PO Q6H PRN #30 tab 07/28/16 0.025 MG-2.5 MG] Ciprofloxacin HCl [Cipro] 500 mg PO BID #20 tab 07/28/16 Saccharomyces Boulardi [Florastor] 500 mg PO BID #28 cap 07/28/16 Cephalexin [Keflex] 500 mg PO QID #5 capsule 09/22/16 Ibuprofen [Motrin] 600 mg PO Q8 PRN #21 tab 09/22/16 Oseltamivir [Tamiflu] 75 mg PO BID #10 cap 04/20/17 Albuterol HFA [Ventolin HFA 90 1 puff IH Q4 PRN #1 inh 10/20/17 mcg/actuation (8 g)] Fluticasone Nasal [Flonase] 1 actuation NS BID #1 bottle 10/20/17 Ibuprofen [Motrin Tab] 1 tab PO Q6 PRN #20 tab 10/20/17 Promethazine DM [Phenergan DM 5 ml PO Q6 PRN #1 bottle 10/20/17 Syrup] Fexofenadine/Pseudoephedrine 1 each PO BID PRN #12 tab.er.12h 11/13/17 [Qing-D 12 Hour Tablet] L. Acidophilus/Dig Enz Cmb 5 1 each PO DAILY #10 capsule 11/13/17 [Probiotic-Digestive Enzymes] - Allergies Allergies/Adverse Reactions: Allergies Allergy/AdvReac Type Severity Reaction Status Date / Time No Known Allergies Allergy Verified 10/20/17 01:22 Review of Systems ROS Statement: Except As Marked, All Systems Reviewed And Found Negative Constitutional: Negative for: Fever, Chills ENT: Positive for: Ear Pain Cardiovascular: Negative for: Chest Pain Gastrointestinal: Positive for: Nausea, Abdominal Pain (Not current ) Physical Exam - Reviewed Nursing Documentation Reviewed: Yes Vital Signs Reviewed: Yes - Physical Exam Appears: Positive for: Well, Non-toxic, No Acute Distress Head Exam: Positive for: ATRAUMATIC, NORMAL INSPECTION, NORMOCEPHALIC Skin: Positive for: Normal Color, Warm, DRY Eye Exam: Positive for: Normal appearance ENT: Positive for: Normal ENT Inspection, Pharynx Is, TM Is/Are Neck: Positive for: Normal, Painless ROM Cardiovascular/Chest: Positive for: Regular Rate, Rhythm Respiratory: Positive for: CNT, Normal Breath Sounds Gastrointestinal/Abdominal: Positive for: Normal Exam, Soft Back: Positive for: Normal Inspection Extremity: Positive for: Normal ROM Neurologic/Psych: Positive for: Alert, Oriented - ECG O2 Sat by Pulse Oximetry: 99 Disposition - Clinical Impression Clinical Impression: URI (upper respiratory infection), Medication side effect - Patient ED Disposition Is Patient to be Admitted: No Counseled Patient/Family Regarding: Diagnosis, Need For Followup, Rx Given - Disposition Referrals: [facility] [Outside] Disposition: Routine/Home Disposition Time: 18:47 Condition: STABLE Prescriptions: Fexofenadine/Pseudoephedrine [Qing-D 12 Hour Tablet] 1 each PO BID PRN #12 tab.er.12h PRN Reason: Cough And Congestion L. Acidophilus/Dig Enz Cmb 5 [Probiotic-Digestive Enzymes] 1 each PO DAILY #10 capsule Instructions: Side Effects From Medicines
== END 2017-11-13 19:00 | disposition home or self-care (01) ==
LOC: H.ER 16:40
DX: J06.9 Acute upper respiratory infection, unspecified (principal)

== ENCOUNTER 2017-12-07 23:29 | Emergency (ER) | payer MEDICAID ==
[2017-12-07 23:30] VITALS: BMI 31.3
[2017-12-07 23:43] VITALS: RESP 18
[2017-12-08] MEDS ORDERED: Sodium Chloride 0.9% 1,000 ML IV STA (00:01)
--- NOTE | 2017-12-08 00:04 | ED PDOC ---
HPI: Female Pain Time Seen by Provider: 12/07/17 23:47 Chief Complaint (Nursing): Female Genitourinary Chief Complaint (Provider): dysuria History Per: Patient History/Exam Limitations: no limitations Onset/Duration Of Symptoms: Days (3) Current Symptoms Are (Timing): Still Present Quality Of Discomfort: Burning, "Pain" Associated Symptoms: Back Pain Additional Complaint(s): 27 y/o female presents for evaluation of dysuria x 3 days. Associated increased urine frequency, urgency. Patient reports right flank pain to have developed today, along with hematuria, prompting ED visit. Denies fever, nausea/vomiting , cough, chest pain, shortness of breath, palpitations, changes in bowel movements, vaginal bleeding/discharge Past Medical History Reviewed: Historical Data, Nursing Documentation, Vital Signs Vital Signs: Last Vital Signs Temp 99.3 F 12/07/17 23:41 Pulse 94 H 12/07/17 23:41 Resp 18 12/07/17 23:41 BP 119/78 12/07/17 23:41 Pulse Ox 99 12/07/17 23:41 - Medical History PMH: Back Problems (back pain) Denies: Kidney Stones - Surgical History Surgical History: (x 2) - Family History Family History: States: Unknown Family Hx - Home Medications Home Medications: Ambulatory Orders Medication Instructions Recorded Ibuprofen [Wal-Profen] 400 mg PO Q6H PRN 01/12/16 Nitrofurantoin Macrocrystals 100 mg PO BID #14 tab 02/10/16 [Macrobid] Ondansetron [Zofran Odt] 4 mg PO ASDIR PRN #20 odt 02/10/16 Amoxicillin/Clavulanate [Augmentin 1 tab PO BID 10 Days tab 02/11/16 875 MG-125 MG] Naproxen [Naprosyn] 500 mg PO Q12H #20 tab 04/18/16 Sulfamethoxazole/Trimethoprim 1 tab PO BID #20 tab 06/14/16 [Bactrim DS 800 mg-160 mg] Amoxicillin 875 mg PO BID #14 tab 07/12/16 Atropine/Diphenoxylate [Lonox 2 tab PO Q6H PRN #30 tab 07/28/16 0.025 MG-2.5 MG] Ciprofloxacin HCl [Cipro] 500 mg PO BID #20 tab 07/28/16 Saccharomyces Boulardi [Florastor] 500 mg PO BID #28 cap 07/28/16 Cephalexin [Keflex] 500 mg PO QID #5 capsule 09/22/16 Ibuprofen [Motrin] 600 mg PO Q8 PRN #21 tab 09/22/16 Oseltamivir [Tamiflu] 75 mg PO BID #10 cap 04/20/17 Albuterol HFA [Ventolin HFA 90 1 puff IH Q4 PRN #1 inh 10/20/17 mcg/actuation (8 g)] Fluticasone Nasal [Flonase] 1 actuation NS BID #1 bottle 10/20/17 Ibuprofen [Motrin Tab] 1 tab PO Q6 PRN #20 tab 10/20/17 Promethazine DM [Phenergan DM 5 ml PO Q6 PRN #1 bottle 10/20/17 Syrup] Fexofenadine/Pseudoephedrine 1 each PO BID PRN #12 tab.er.12h 11/13/17 [Qing-D 12 Hour Tablet] L. Acidophilus/Dig Enz Cmb 5 1 each PO DAILY #10 capsule 11/13/17 [Probiotic-Digestive Enzymes] Ciprofloxacin HCl [Cipro] 500 mg PO BID #14 tab 12/08/17 Fluconazole [Diflucan] 150 mg PO ONCE #1 tab 12/08/17 Naproxen [Naprosyn] 500 mg PO Q12 PRN #20 tablet 12/08/17 - Allergies Allergies/Adverse Reactions: Allergies Allergy/AdvReac Type Severity Reaction Status Date / Time No Known Allergies Allergy Verified 10/20/17 01:22 Review of Systems ROS Statement: Except As Marked, All Systems Reviewed And Found Negative Gastrointestinal: Positive for: Abdominal Pain (flank pain) Genitourinary Female: Positive for: Dysuria, Frequency, Hematuria Physical Exam - Reviewed Nursing Documentation Reviewed: Yes Vital Signs Reviewed: Yes - Physical Exam Appears: Positive for: Well, Non-toxic, No Acute Distress Head Exam: Positive for: ATRAUMATIC, NORMAL INSPECTION, NORMOCEPHALIC Skin: Positive for: Normal Color Eye Exam: Positive for: Normal appearance ENT: Positive for: Normal ENT Inspection Cardiovascular/Chest: Positive for: Regular Rate, Rhythm Respiratory: Positive for: Normal Breath Sounds Gastrointestinal/Abdominal: Positive for: Bowel Sounds, Soft, Tenderness ( suprapubic, right flank) Back: Positive for: Normal Inspection. Negative for: L CVA Tenderness, R CVA Tenderness Extremity: Positive for: Normal ROM Neurologic/Psych: Positive for: Alert, Oriented (x3) - Laboratory Results Result Diagrams: 12/08/17 00:30 12/08/17 00:30 - ECG O2 Sat by Pulse Oximetry: 99 - Progress ED Course And Treament: labs, urine, IV fluids, IV toradol, IV rocephin Patient educated on findings, discharged with rx Cipro, naproxen (diflucan also given at patient's request due to h/o yeast infections secondary to abx use) Advised fluids. Tylenol/Ibuprofen PRN pain Follow up PMD 2-3 days Return precautions given Disposition - Clinical Impression Clinical Impression: Pyelonephritis - Patient ED Disposition Is Patient to be Admitted: No Counseled Patient/Family Regarding: Studies Performed, Diagnosis, Need For Followup, Rx Given - Disposition Referrals: Rodri Jaimes MD [Primary Care Provider] - Disposition: Routine/Home Disposition Time: 03:21 Condition: IMPROVED Prescriptions: Ciprofloxacin HCl [Cipro] 500 mg PO BID #14 tab Fluconazole [Diflucan] 150 mg PO ONCE #1 tab Naproxen [Naprosyn] 500 mg PO Q12 PRN #20 tablet PRN Reason: Pain, Moderate (4-7) Instructions: Kidney Infection
[2017-12-08 00:43] LABS: SQUAMOUS EPITHIAL 6 /hpf (0-5); URINE BACTERIA RARE (<OCC); URINE BILIRUBIN NEGATIVE (NEGATIVE); URINE BLOOD LARGE (NEGATIVE); URINE CLARITY CLOUDY (Clear); URINE COLOR YELLOW (YELLOW); URINE GLUCOSE (UA) 150 mg/dL (Normal); URINE LEUKOCYTE ESTERASE LARGE Leu/uL (Negative); URINE PROTEIN 30 mg/dL (NEGATIVE); URINE UROBILINOGEN 0.2-1.0 mg/dL (0.2-1.0)
[2017-12-08 00:50] LABS: BASO % 0.3 % (0.0-2.0); EOS % 0.3 % (0.0-4.0); HEMOGLOBIN 13.3 g/dL (12.0-16.0); LYMPH # 1.4 K/uL (1.0-4.3); LYMPH % 8.9 % (20.0-40.0); MEAN CELL VOLUME 86.6 fl (81.0-99.0); MEAN CORPUSCULAR HEMOGLOBIN 28.3 pg (27.0-31.0); MEAN CORPUSCULAR HGB CONC 32.7 g/dL (33.0-37.0); MEAN PLATELET VOLUME 11.2 fl (7.2-11.7); MONO # 1.1 K/uL (0.0-0.8); MONO % 7.1 % (0.0-10.0); NEUT # 12.7 K/uL (1.8-7.0); NEUT % 83.4 % (50.0-75.0); PLATELET COUNT 152 K/uL (130-400); RBC 4.71 Mil/uL (3.80-5.20); RED CELL DISTRIBUTION WIDTH 13.8 % (11.5-14.5); WHITE BLOOD COUNT 15.3 K/uL (4.8-10.8)
[2017-12-08 00:57] LABS: ALBUMIN 3.7 g/dL (3.5-5.0); ALT/SGPT 27 U/L (9-52); AST/SGOT 24 U/L (14-36); BLOOD UREA NITROGEN 11 mg/dl (7-17); CALCIUM 9.5 mg/dL (8.4-10.2); GFR NON-AFRICAN AMERICAN > 60
[2017-12-08] MEDS ORDERED: cefTRIAXone (Rocephin) 1 gm Inj ONE (02:08)
[2017-12-08 02:22] LABS: ACANTHOCYTES SLIGHT; ANISOCYTOSIS SLIGHT; BANDS 1 % (0-2); LYMPHOCYTE 7 % (20-50); MONOCYTE 6 % (0-10); NEUTROPHIL 86 % (42-75); PLATELET ESTIMATE NORMAL (NORMAL); STOMATOCYTES SLIGHT; TOTAL CELLS COUNTED 100
[2017-12-08 02:23] LABS: LARGE PLATELETS PRESENT
[2017-12-08 03:59] VITALS: BP 112/56; PULSE 82; TEMP 98.3; O2SAT 98
== END 2017-12-08 03:53 | disposition home or self-care (01) ==
LOC: H.ER 23:29
DX: N12 Tubulo-interstitial nephritis, not specified as acute or chronic (principal)
CPT/HCPCS: 80053; 81003; 81025; 85025; 87086; 96361; 96365; 96375; 99283; J0696; J1885; J7030